=== PATIENT | male | born 1945 | race Caucasian/White ===

== ENCOUNTER 2018-06-12 16:35 | Observation (INO) | payer MEDICARE ==
[~2018-06-12] VITALS: Ht 177.8 cm; Wt 92.5 kg
[2018-06-12 16:56] LABS: EOSINOPHILS % (AUTO) 3.5 % (0.0-8.0); HEMATOCRIT 40.6 % (42-54); LYMPHOCYTES % (AUTO) 25.5 % (21.0-51.0); MEAN CORPUSCULAR HEMOGLOBIN 32.9 pg (27.0-33.0); MEAN CORPUSCULAR HGB CONC 34.3 g/dL (32.0-36.0); PLATELET COUNT (AUTO) 239 K/uL (130-400); RED BLOOD CELL COUNT(AUTO) 4.23 MIL/uL (4.50-6.20); RED CELL DISTRIBUTION WIDTH 13.3 % (11.0-15.5); WHITE BLOOD COUNT (AUTO) 7.3 K/uL (4.8-10.8)
[2018-06-12 17:15] LABS: INR 1.17 (0.85-1.15); PARTIAL THROMBOPLASTIN TIME 31.3 SEC (26.3-35.5); PROTHROMBIN TIME 12.2 SEC (9.6-11.6)
[2018-06-12 17:35] LABS: CREATININE 1.4 mg/dL (0.5-1.5); POTASSIUM 3.7 mmol/L (3.5-5.1)
[2018-06-12 17:55] LABS: ALBUMIN 3.9 g/dL (3.5-5.0); BILIRUBIN,TOTAL 0.3 mg/dL (0.2-1.0); TOTAL PROTEIN, SERUM 7.6 g/dL (6.0-8.3)
[2018-06-12] MEDS ORDERED: ACETAMINOPHEN 325 MG TAB PO PRN ×2 (19:45)
[2018-06-12] MEDS: NITROGLYCERIN 1GM/1 INCH PACKET TD SCH (19:45)
[2018-06-12] MEDS ORDERED: ONDANSETRON HCL 4 MG/2 ML VIAL IV PRN (19:45)
[2018-06-12] MEDS ORDERED: MORPHINE SULFATE 4 MG/1ML SYG IV PRN (19:45)
[2018-06-12] MEDS ORDERED: HYDRALAZINE HCL 20 MG/ML VIAL IV PRN (19:45)
[2018-06-12] MEDS: ENOXAPARIN SODIUM 30 MG/0.3 ML SQ SCH (21:00)
[2018-06-12] MEDS: METOPROLOL TARTRATE 25 MG TAB PO SCH (21:00)
[2018-06-12] MEDS: FAMOTIDINE/PF 20 MG/2 ML VIAL IV SCH (21:00)
[2018-06-12] MEDS ORDERED: ENOXAPARIN SODIUM 30 MG/0.3 ML SQ ONE (21:26)
[2018-06-12] MEDS ORDERED: NITROGLYCERIN 1GM/1 INCH PACKET TD ONE (21:26)
[2018-06-12] MEDS ORDERED: FAMOTIDINE 20MG TAB 20 MG TAB ONE (21:26)
[2018-06-12] MEDS ORDERED: METOPROLOL TARTRATE 25 MG TAB ONE (21:27)
--- NOTE | 2018-06-13 00:45 | NUR ---
ASSESSMENT PATIENT TRANSFERRED FROM [place] [id number]. DX: UNSTABLE ANGINA - HX A-FIB W/ DEFIBRILLATOR. PATIENT DENIES CHEST PAIN AND SHORTNESS OF BREATH AT THIS TIME. O2 @ 2L - NASAL CANNULA. RESPIRATIONS UNLABORED. V-PACED HR 80'S TO 90'S. SEE DOCUMENTATION FOR FULL ASSESSMENT. CALL LIGHT WITHIN REACH. INSTRUCTED PATIENT TO CALL IF ASSISTANCE IS NEEDED.
[2018-06-13 01:53] VITALS: BP 139/76
[2018-06-13] MEDS ORDERED: OMEG-148 PO (03:51)
[2018-06-13] MEDS ORDERED: ACET-2900 PO (03:51)
[2018-06-13] MEDS ORDERED: ALBU2.5V2 IH (03:51)
[2018-06-13] MEDS ORDERED: SIMV10TA2 PO (03:51)
[2018-06-13] MEDS ORDERED: MULT-264 PO (03:51)
[2018-06-13] MEDS ORDERED: METF-444 PO (03:51)
[2018-06-13] MEDS ORDERED: HYDR25TA PO (03:51)
[2018-06-13] MEDS ORDERED: METO100T14 PO (03:51)
[2018-06-13] MEDS ORDERED: LOSA50TA64 PO (03:51)
[2018-06-13] MEDS ORDERED: BUDE10.2 IH (03:51)
[2018-06-13] MEDS ORDERED: ASPI-1012 PO (03:51)
[2018-06-13] MEDS ORDERED: GLUC1TAB21 PO (03:51)
[2018-06-13] MEDS ORDERED: NITR0.4T50 SL (03:51)
[2018-06-13] MEDS ORDERED: ALBU8.5H8 IH (03:51)
[2018-06-13 03:57] VITALS: BP 133/82
[2018-06-13] MEDS: NITROGLYCERIN 1GM/1 INCH PACKET TD SCH (04:02)
[2018-06-13] MEDS: INSULIN HUMULIN R 100 UNIT/ML 3ML SQ SCH ×2 (06:18→11:30)
[2018-06-13 07:35] VITALS: BP 130/55
[2018-06-13] MEDS: FAMOTIDINE/PF 20 MG/2 ML VIAL IV SCH (07:36)
[2018-06-13] MEDS: METOPROLOL TARTRATE 25 MG TAB PO SCH (07:36)
[2018-06-13] MEDS: ENOXAPARIN SODIUM 30 MG/0.3 ML SQ SCH (07:36)
--- NOTE | 2018-06-13 08:00 | NUR ---
ASSESSMENT PT IS AAOX4 DENIES CP DENIES SOB DENIES NV NO COMPLAINTS AT THIS TIME. TOLERATED AM MEDS. SITTING UPRIGHT IN BED. CALL LIGHT WITHIN REACH.
[2018-06-13] MEDS ORDERED: ASPIRIN 325 MG TABLET PO SCH (09:00)
[2018-06-13] MEDS ORDERED: RANO500T2 PO (10:54)
[2018-06-13] MEDS ORDERED: ALBUTEROL SULFATE 0.083% 2.5 MG/3 ML INH IH PRN (11:15)
[2018-06-13 11:31] VITALS: BP 111/80
--- NOTE | 2018-06-13 14:00 | NUR ---
DC HOME PT AND FAMILY VERBALIZE DC INSTRUCTIONS UNDERSTANDING, AGREE TO FOLLOW UP WITH MD ORDERED AND TAKE MEDS ORDERED. PIV REMOVED CATH TIP INTACT TELE PACK REMOVED ALL QUESTIONS ANSWERED. DOWN VIA WC TO VEHICLE WITH FAMILY.
[2018-06-13] MEDS ORDERED: METFORMIN HCL 500 MG TABLET PO SCH (17:00)
[2018-06-13] MEDS ORDERED: RANOLAZINE 500 MG TAB.SR.12H PO SCH (21:00)
[2018-06-13] MEDS ORDERED: SIMVASTATIN 10 MG TABLET PO SCH (21:00)
[2018-06-13] MEDS ORDERED: METOPROLOL TARTRATE 50 MG TAB PO SCH (21:00)
[2018-06-14] MEDS ORDERED: HYDROCHLOROTHIAZIDE 25 MG TABLET PO SCH (09:00)
[2018-06-14] MEDS ORDERED: GLUCOSAMINE-CHONDROITIN PO SCH (09:00)
[2018-06-14] MEDS ORDERED: MULTIVITAMIN TABLET PO SCH (09:00)
[2018-06-14] MEDS ORDERED: LOSARTAN 50 MG TABLET PO SCH (09:00)
[2018-06-14] MEDS ORDERED: FISH OIL 1000 MG/CAP PO SCH (09:00)
== END 2018-06-13 13:44 | disposition home or self-care (01) ==
LOC: EDH 16:35 → INTOOBSV 18:35 → EDHIP 18:35 → 2DH 06-13 01:52
PROVIDERS: ADMIT Internal Medicine; ATTEND Internal Medicine
DX: I25.110 Atherosclerotic heart disease of native coronary artery with unstable angina pectoris (principal); E11.9 Type 2 diabetes mellitus without complications; K21.9 Gastro-esophageal reflux disease without esophagitis; I10 Essential (primary) hypertension; E78.5 Hyperlipidemia, unspecified; I25.5 Ischemic cardiomyopathy; I48.0 Paroxysmal atrial fibrillation; Z79.01 Long term (current) use of anticoagulants; Z95.5 Presence of coronary angioplasty implant and graft; Z95.810 Presence of automatic (implantable) cardiac defibrillator
CPT/HCPCS: 36415; 71045; 80053; 82550; 82948 ×2; 83874; 84484 ×2; 85025; 85610; 85730; 93005; 94664; 96372; 96374; 99284; G0378 ×19; J1650 ×2; J3490

== ENCOUNTER 2019-07-05 20:05 | Inpatient (IN) | payer MEDICARE ==
[~2019-07-05] VITALS: Ht 175.3 cm; Wt 79.1 kg
[~2019-07-05 20:05] MED LIST: ACET-3194 PO; ALBU8.5H8 IH; ASPI-1012 PO; BUDE10.2 IH; GLUC1TAB21 PO; HYDR25TA PO; LOSA50TA64 PO; METF-444 PO; METO100T14 PO; MULT-264 PO; NIFE-40 PO; NITR0.4T50 SL; OMEG-148 PO; RANO500T2 PO; SIMV10TA2 PO; [UNRECOGNIZED DRUG - CODE] PO
[2019-07-05] MEDS ORDERED: IPRATROPIUM/ALBUTEROL SULFATE 3 ML SOLUTION IH ONE (22:25)
[2019-07-05 22:40] LABS: BASOPHILS % (AUTO) 0.1 % (0.0-5.0); EOSINOPHILS % (AUTO) 0.3 % (0.0-8.0); HEMATOCRIT 31.7 % (42-54); LYMPHOCYTES % (AUTO) 3.6 % (21.0-51.0); MEAN CORPUSCULAR HEMOGLOBIN 31.6 pg (27.0-33.0); MEAN CORPUSCULAR HGB CONC 33.1 g/dL (32.0-36.0); MEAN CORPUSCULAR VOLUME 95.5 fL (79-99); MONOCYTES % (AUTO) 6.3 % (3.0-13.0); NEUTROPHILS % (AUTO) 87.5 % (40.0-77.0); PLATELET COUNT (AUTO) 235 K/uL (130-400); RED BLOOD CELL COUNT(AUTO) 3.32 MIL/uL (4.50-6.20); WHITE BLOOD COUNT (AUTO) 26.6 K/uL (4.8-10.8)
[2019-07-05 22:44] LABS: APPEARANCE,URINE Turbid (CLEAR); BILIRUBIN,URINE Small (NEGATIVE); COLOR,URINE Dark Yellow (YELLOW); GLUCOSE, URINE (UA) Negative (NEGATIVE); KETONES,URINE 40 mg/dL (NEGATIVE); LEUKOCYTE ESTERASE ,URINE Large (NEGATIVE); NITRATE,URINE Positive (NEGATIVE); OCCULT BLOOD,URINE Large (NEGATIVE); PROTEIN,URINE POS 2+ mg/dL (NEGATIVE)
[2019-07-05 22:55] LABS: RAPID GROUP A STREP NEGATIVE (NEGATIVE)
[2019-07-05 22:57] LABS: INR 1.39 (0.85-1.15); PARTIAL THROMBOPLASTIN TIME 48.3 SEC (26.3-35.5); PROTHROMBIN TIME 14.8 SEC (9.6-11.6)
[2019-07-05 22:58] LABS: CARBON DIOXIDE 25 mmol/L (21-32); CHLORIDE 97 mmol/L (101-111); CREATININE 1.9 mg/dL (0.5-1.5); GLOMERULAR FILTR. RATE CALC 37 mL/min (>60); GLUCOSE,RANDOM 157 mg/dL (70-105); POTASSIUM 4.2 mmol/L (3.5-5.1); SODIUM SERUM 132 mmol/L (136-145); UREA NITROGEN, BLOOD 32 mg/dL (7-18)
[2019-07-05 23:09] LABS: ALANINE AMINOTRANSFERASE 11 U/L (12-78); ASPARTATE AMINOTRANSFERASE 13 U/L (10-37); BILIRUBIN,TOTAL 0.7 mg/dL (0.2-1.0); CREATINE KINASE, TOTAL 41 U/L (21-232); MYOGLOBIN 104 ng/mL (10-92); TROPONIN I < 0.04 ng/mL (0.00-0.06)
[2019-07-05 23:19] LABS: BACTERIA,URINE Many /HPF (None Seen); MUCUS,URINE Moderate LPF (None Seen); SQUAMOUS EPITHELIAL CELL,UR Rare /HPF (0-2); WBC,URINE TNTC /HPF (0-1)
[2019-07-05] MEDS ORDERED: MEROPENEM 1 GM VIAL ONE (23:56)
[2019-07-06] VITALS (12 sets, daily range): BP systolic 114–153; BP diastolic 60–78
[2019-07-06] MEDS ORDERED: ONDANSETRON HCL 4 MG/2 ML VIAL IV PRN (01:00)
[2019-07-06] MEDS: MEROPENEM 1 GM VIAL IVP SCH ×3 (01:00→17:23)
[2019-07-06] MEDS ORDERED: IPRATROPIUM/ALBUTEROL SULFATE 3 ML SOLUTION IH PRN (01:00)
[2019-07-06] MEDS ORDERED: HYDRALAZINE HCL 20 MG/ML VIAL IV PRN (01:15)
[2019-07-06] MEDS ORDERED: MORPHINE SULFATE 2 MG/ML 1ML SYG IVP PRN (01:30)
[2019-07-06 02:48] LABS: BASOPHILS % (AUTO) 0.1 % (0.0-5.0); EOSINOPHILS % (AUTO) 0.1 % (0.0-8.0); HEMATOCRIT 30.4 % (42-54); LYMPHOCYTES % (AUTO) 2.5 % (21.0-51.0); MEAN CORPUSCULAR HEMOGLOBIN 32.5 pg (27.0-33.0); MEAN CORPUSCULAR HGB CONC 34.2 g/dL (32.0-36.0); MONOCYTES % (AUTO) 5.9 % (3.0-13.0); NEUTROPHILS % (AUTO) 90.7 % (40.0-77.0); PLATELET COUNT (AUTO) 236 K/uL (130-400); RED CELL DISTRIBUTION WIDTH 14.1 % (11.0-15.5); WHITE BLOOD COUNT (AUTO) 24.5 K/uL (4.8-10.8)
[2019-07-06 03:15] LABS: CREATININE 1.8 mg/dL (0.5-1.5); POTASSIUM 4.1 mmol/L (3.5-5.1)
[2019-07-06] MEDS: ACETAMINOPHEN 325 MG TAB PO PRN (04:44)
[2019-07-06] MEDS ORDERED: FERR325T22 PO (05:40)
[2019-07-06] MEDS ORDERED: PANT40TA25 PO (05:40)
[2019-07-06] MEDS ORDERED: LEVO750T46 PO (05:40)
[2019-07-06] MEDS ORDERED: ASPI-555 PO (05:40)
[2019-07-06] MEDS ORDERED: RIVA20TA PO (05:40)
[2019-07-06] MEDS: INSULIN HUMULIN R 100 UNIT/ML 3ML SQ SCH ×4 (06:10→22:01)
--- NOTE | 2019-07-06 10:00 | NUR ---
Patient transferred from [facility]. Assumed care at this time. Patient in no apparent distress with no complaints of pain, SOB. Will continue to monitor.
[2019-07-06] MEDS: FAMOTIDINE 20MG TAB 20 MG TAB PO SCH (10:11)
[2019-07-06] MEDS: ENOXAPARIN SODIUM 30 MG/0.3 ML SQ SCH (10:12)
--- NOTE | 2019-07-06 16:38 | NUR ---
INITIAL: Call placed to pt and spouse this afternoon to discuss dcp. Per pt and spouse, prior to admission pt was at [facility] for short term therapy following a hip fracture. Pt states that prior to this he was living at home w his spouse. He is a [place] from [place] and was previously independent w ambulation and ADLs. Per spouse, she has borrowed a BSC and rolling walker. Pt has at home a cpap and nebulizer as well. Per pt and spouse, dcp is for pt to return to [facility] to complete rehabilitation process. Informed them that new referral would have to be completed pending Md order. Both verbalize understanding. Telephone consent obtained for DANE/PC for [facility] once medically cleared. Addendum: 07/06/19 at 1646 by LANDY ALCOCER Amended: Links added.
[2019-07-07] VITALS (14 sets, daily range): BP systolic 105–148; BP diastolic 49–83
[2019-07-07] MEDS: ACETAMINOPHEN 325 MG TAB PO PRN ×3 (00:09→20:42)
[2019-07-07] MEDS: MEROPENEM 1 GM VIAL IVP SCH ×3 (01:40→16:37)
[2019-07-07 05:05] LABS: MEAN CORPUSCULAR HEMOGLOBIN 31.5 pg (27.0-33.0); MEAN CORPUSCULAR HGB CONC 33.3 g/dL (32.0-36.0); MEAN CORPUSCULAR VOLUME 94.6 fL (79-99); PLATELET COUNT (AUTO) 222 K/uL (130-400); RED BLOOD CELL COUNT(AUTO) 3.17 MIL/uL (4.50-6.20); WHITE BLOOD COUNT (AUTO) 20.3 K/uL (4.8-10.8)
[2019-07-07 05:22] LABS: ALBUMIN 2.6 g/dL (3.5-5.0); BILIRUBIN,TOTAL 0.5 mg/dL (0.2-1.0); CREATININE 1.6 mg/dL (0.5-1.5); MAGNESIUM 1.9 mg/dL (1.80-2.40); PHOSPHORUS 2.7 mg/dL (2.5-4.9); POTASSIUM 3.6 mmol/L (3.5-5.1); TOTAL PROTEIN, SERUM 6.7 g/dL (6.0-8.3)
[2019-07-07 05:24] LABS: BAND NEUTROPHILS % (MANUAL) 5 % (0-2); LYMPHOCYTES % (MANUAL) 4 % (22-44); MONOCYTES % (MANUAL) 6 % (2-9); SEGMENTED NEUTROPHILS % 85 % (40-70)
[2019-07-07 05:25] LABS: MAN.DIFF COMMENT-IMPRESSION MANUAL DIFFERENTIAL; PLATELET MORPHOLOGY COMMENT ADEQUATE
[2019-07-07] MEDS: INSULIN HUMULIN R 100 UNIT/ML 3ML SQ SCH ×4 (06:48→20:31)
[2019-07-07] MEDS: FAMOTIDINE 20MG TAB 20 MG TAB PO SCH (08:34)
[2019-07-07] MEDS: THIAMINE HCL 100 MG/ML 2ML VIAL IVP SCH (08:34)
[2019-07-07] MEDS: ENOXAPARIN SODIUM 30 MG/0.3 ML SQ SCH (08:35)
[2019-07-08] VITALS: BP 139/78
[2019-07-08] MEDS: MEROPENEM 1 GM VIAL IVP SCH ×4 (01:29→23:51)
[2019-07-08 04:00] VITALS: BP 147/59
[2019-07-08] MEDS: ACETAMINOPHEN 325 MG TAB PO PRN (04:32)
[2019-07-08 04:52] LABS: BASOPHILS % (AUTO) 0.2 % (0.0-5.0); EOSINOPHILS % (AUTO) 0.2 % (0.0-8.0); HEMATOCRIT 28.1 % (42-54); LYMPHOCYTES % (AUTO) 5.6 % (21.0-51.0); MEAN CORPUSCULAR HGB CONC 33.1 g/dL (32.0-36.0); MEAN CORPUSCULAR VOLUME 93.7 fL (79-99); MONOCYTES % (AUTO) 6.6 % (3.0-13.0); NEUTROPHILS % (AUTO) 86.8 % (40.0-77.0); PLATELET COUNT (AUTO) 234 K/uL (130-400); RED CELL DISTRIBUTION WIDTH 13.7 % (11.0-15.5); WHITE BLOOD COUNT (AUTO) 12.5 K/uL (4.8-10.8)
[2019-07-08 05:27] LABS: CREATININE 1.3 mg/dL (0.5-1.5); MAGNESIUM 1.8 mg/dL (1.80-2.40); POTASSIUM 3.5 mmol/L (3.5-5.1)
[2019-07-08] MEDS: INSULIN HUMULIN R 100 UNIT/ML 3ML SQ SCH ×4 (05:53→21:00)
[2019-07-08 07:46] VITALS: BP 143/72
[2019-07-08] MEDS: FAMOTIDINE 20MG TAB 20 MG TAB PO SCH (07:57)
[2019-07-08] MEDS: THIAMINE HCL 100 MG/ML 2ML VIAL IVP SCH (07:57)
[2019-07-08] MEDS: ENOXAPARIN SODIUM 30 MG/0.3 ML SQ SCH (07:58)
--- NOTE | 2019-07-08 08:45 | NUR ---
ASSESSMENT COMPLETED AND DOCUMENTED. GIVEN SCHEDULED MEDICATIONS. DR. ELIZONDO IN TO SEE PATIENT, UPDATE GIVEN.
[2019-07-08] MEDS ORDERED: AZITHROMYCIN 250 MG TABLET PO SCH (11:45)
[2019-07-08 12:08] VITALS: BP 171/77
--- NOTE | 2019-07-08 15:40 | NUR ---
C/O CHEST PAIN, 6 ON CEE SCALE. TELE READING SR HR 61. STATES PAIN IS AT MID CHEST, NON RADIATING. VS: 61, 15, 96% ON ROOM AIR, 176/81 (127). HE STATES HIS AICD WAS CHECKED LAST MONTH. PAGED DR. ELIZONDO.
[2019-07-08 16:39] VITALS: BP 176/81
--- NOTE | 2019-07-08 16:45 | NUR ---
DR. ELIZONDO RETURNED CALL---ORDERED CARDIAC PANEL Q 6 HRS X 3 SETS. INFORMED PATIENT. NO FURTHER C/O CHEST PAIN.
[2019-07-08 18:04] LABS: CREATINE KINASE, TOTAL 15 U/L (21-232); MYOGLOBIN 48 ng/mL (10-92); TROPONIN I < 0.04 ng/mL (0.00-0.06)
--- NOTE | 2019-07-08 18:10 | NUR ---
MEDICATED WITH HYDRALAZINE 10 MG IV FOR BP 176/81.
[2019-07-08 19:30] VITALS: BP 169/72
[2019-07-08] MEDS ORDERED: NITROGLYCERIN 0.4 MG SL TAB SL PRN (21:30)
[2019-07-08] MEDS ORDERED: NIFEDIPINE ER 30 MG TAB PO SCH (22:30)
[2019-07-08] MEDS ORDERED: HYDROCHLOROTHIAZIDE 25 MG TABLET PO SCH (22:30)
[2019-07-08] MEDS ORDERED: HYDROCHLOROTHIAZIDE 25 MG TABLET ONE (23:45)
[2019-07-08] MEDS: DOCUSATE SODIUM 100 MG CAP PO SCH (23:51)
[2019-07-08] MEDS: METOPROLOL TARTRATE 25 MG TAB PO SCH (23:51)
[2019-07-08] MEDS: LOSARTAN 50 MG TABLET PO SCH (23:51)
[2019-07-09] VITALS (8 sets, daily range): BP systolic 120–169; BP diastolic 54–84
[2019-07-09] LABS: CREATINE KINASE, TOTAL 16 U/L (21-232); MYOGLOBIN 52 ng/mL (10-92); TROPONIN I < 0.04 ng/mL (0.00-0.06)
[2019-07-09] MEDS ORDERED: LORAZEPAM 2 MG/ML 1 ML VIAL IVP ONE (03:30)
--- NOTE | 2019-07-09 03:30 | NUR ---
SPOKE TO YUVAL THOMSON, PT HAS BEEN CONFUSED WITH CONFUSED STATEMENTS. UNAWARE OF HIS SURROUNDINGS. RECEIVED NEW ORDER FOR LORAZEPAM 0.5 IVP x1. STAT ORDER TO CHECK AMMONIA LEVELS.
[2019-07-09] MEDS ORDERED: LORAZEPAM 2 MG/ML 1 ML VIAL ONE (03:38)
--- NOTE | 2019-07-09 03:48 | NUR ---
AMMONIA LEVEL WNL AT 12. PT IS LAYING WITH EYES CLOSED BUT MUMBLES CONVERSATIONS WITH HIMSELF.
[2019-07-09 04:01] LABS: BASOPHILS % (AUTO) 0.3 % (0.0-5.0); EOSINOPHILS % (AUTO) 0.4 % (0.0-8.0); HEMATOCRIT 30.9 % (42-54); LYMPHOCYTES % (AUTO) 8.5 % (21.0-51.0); MEAN CORPUSCULAR HEMOGLOBIN 30.8 pg (27.0-33.0); MEAN CORPUSCULAR HGB CONC 33.3 g/dL (32.0-36.0); MEAN CORPUSCULAR VOLUME 92.5 fL (79-99); MONOCYTES % (AUTO) 11.8 % (3.0-13.0); NEUTROPHILS % (AUTO) 77.2 % (40.0-77.0); PLATELET COUNT (AUTO) 259 K/uL (130-400); RED BLOOD CELL COUNT(AUTO) 3.34 MIL/uL (4.50-6.20); RED CELL DISTRIBUTION WIDTH 13.2 % (11.0-15.5); WHITE BLOOD COUNT (AUTO) 9.5 K/uL (4.8-10.8)
[2019-07-09 04:19] LABS: CARBON DIOXIDE 27 mmol/L (21-32); CHLORIDE 98 mmol/L (101-111); CREATINE KINASE, TOTAL 19 U/L (21-232); CREATININE 1.2 mg/dL (0.5-1.5); GLOMERULAR FILTR. RATE CALC 63 mL/min (>60); GLUCOSE,RANDOM 394 mg/dL (70-105); MYOGLOBIN 52 ng/mL (10-92); POTASSIUM 3.7 mmol/L (3.5-5.1); SODIUM SERUM 135 mmol/L (136-145); TROPONIN I < 0.04 ng/mL (0.00-0.06); UREA NITROGEN, BLOOD 22 mg/dL (7-18)
[2019-07-09 04:26] LABS: AMMONIA 12 umol/L (11-32)
--- NOTE | 2019-07-09 05:15 | NUR ---
PT WAS FOUND STANDING AT BEDSIDE BY JM PCP. PT WAS POSITIONED BACK INTO BED AND REDIRECTED TO HIS SURROUNDINGS, REMINDED PT HE IS AT [facility]. NO INJURY WAS NOTED. PT IS CALM AND LAYING DOWN.
--- NOTE | 2019-07-09 06:00 | NUR ---
BED ALARM SET OFF AND PT WAS ATTEMPTING TO GET OUT OF BED. I STAYED WITH PT WHILE HE SAT AT EDGE OF BED FOR A FEW MINUTES. PT UNDERSTANDS HE HAS A HIP AND LEG INJURY AND STATES HE NEEDS TO GET BETTER. REORIENTED PT TO HIS SURROUNDINGS AND HE COULD NOT GET UP. HE DOES NOT HAVE STRENGTH FOR FULL WEIGHT BEARING. PT VERBALIZES UNDERSTANDING BUT IS UPSET HE NEEDS TO STAY IN BED AND IS IN HOSPITAL. NO INJURY NOTED. PT AGREED TO LAY BACK DOWN IN BED. NIETO STILL SECURED TO LEG AND IN PLACE. BED TO LOWEST LEVEL. CALL LIGHT WITHIN REACH. BED ALARM IS ON. JM PCP WILL CONTINUE TO BE AT PTS DOOR TO MONITOR HIM.
[2019-07-09] MEDS: INSULIN HUMULIN R 100 UNIT/ML 3ML SQ SCH ×4 (06:04→20:58)
--- NOTE | 2019-07-09 06:30 | NUR ---
NOTIFIED DJ SOFA BACK UPHOLSTERER, 1:1 SITTER IS NEEDED FOR PATIENT D/T HE CONTINUES TO ATTEMPT TO GET OUT OF BED.
[2019-07-09] MEDS: ENOXAPARIN SODIUM 30 MG/0.3 ML SQ SCH (08:15)
[2019-07-09] MEDS: DOCUSATE SODIUM 100 MG CAP PO SCH ×2 (08:15→20:58)
[2019-07-09] MEDS: HYDROCHLOROTHIAZIDE 25 MG TABLET PO SCH (08:16)
[2019-07-09] MEDS: AZITHROMYCIN 250 MG TABLET PO SCH (08:16)
[2019-07-09] MEDS: METOPROLOL TARTRATE 25 MG TAB PO SCH ×2 (08:16→20:57)
[2019-07-09] MEDS: NIFEDIPINE ER 30 MG TAB PO SCH (08:16)
[2019-07-09] MEDS: LINAGLIPTIN 5 MG TABLET PO SCH (08:16)
[2019-07-09] MEDS: RIVAROXABAN 20 MG TABLET PO SCH (08:16)
[2019-07-09] MEDS: FAMOTIDINE 20MG TAB 20 MG TAB PO SCH (08:16)
[2019-07-09] MEDS: THIAMINE HCL 100 MG/ML 2ML VIAL IVP SCH (08:20)
[2019-07-09] MEDS ORDERED: CLONAZEPAM 1 MG TABLET PO ONE (11:30)
[2019-07-09] MEDS ORDERED: CLONAZEPAM 0.5 MG TABLET ONE (11:45)
[2019-07-09] MEDS ORDERED: CLONAZEPAM 0.5 MG TABLET PO SCH ×2 (12:00→21:00)
[2019-07-09] MEDS ORDERED: MAGNESIUM 2GM PREMIX 50ML 50 ML IV PRN (13:15)
[2019-07-09] MEDS: MEROPENEM 1 GM VIAL IVP SCH ×2 (13:23→20:57)
[2019-07-09] MEDS: LOSARTAN 50 MG TABLET PO SCH (20:58)
[2019-07-09] MEDS ORDERED: CLONAZEPAM 1 MG TABLET PO SCH (21:00)
[2019-07-09] MEDS ORDERED: DOCUSATE SODIUM 100 MG CAP PO PRN (21:00)
[2019-07-10 04:00] VITALS: BP 133/66
[2019-07-10 05:32] LABS: HEMATOCRIT 31.3 % (42-54); MEAN CORPUSCULAR HEMOGLOBIN 30.6 pg (27.0-33.0); MEAN CORPUSCULAR HGB CONC 32.9 g/dL (32.0-36.0); MEAN CORPUSCULAR VOLUME 92.9 fL (79-99); PLATELET COUNT (AUTO) 316 K/uL (130-400); RED BLOOD CELL COUNT(AUTO) 3.37 MIL/uL (4.50-6.20); RED CELL DISTRIBUTION WIDTH 13.6 % (11.0-15.5); WHITE BLOOD COUNT (AUTO) 11.1 K/uL (4.8-10.8)
[2019-07-10 05:48] LABS: CREATININE 1.1 mg/dL (0.5-1.5); MAGNESIUM 1.9 mg/dL (1.80-2.40); POTASSIUM 3.6 mmol/L (3.5-5.1)
[2019-07-10] MEDS: INSULIN HUMULIN R 100 UNIT/ML 3ML SQ SCH ×4 (05:54→20:25)
[2019-07-10] MEDS: MEROPENEM 1 GM VIAL IVP SCH (06:01)
--- NOTE | 2019-07-10 06:48 | NUR ---
Patient attempted to get out of bed several times throughout the night. Has intermittent confusion and is impulsive. Patient needs to be reoriented. Able to state name and . Does not know year or location. Crackles heard when auscultated. Denies pain or sob. No signs of distress.
[2019-07-10 06:50] LABS: APPEARANCE,URINE Clear (CLEAR); BILIRUBIN,URINE Negative (NEGATIVE); COLOR,URINE Yellow (YELLOW); GLUCOSE, URINE (UA) Negative (NEGATIVE); KETONES,URINE 40 mg/dL (NEGATIVE); LEUKOCYTE ESTERASE ,URINE Negative (NEGATIVE); NITRATE,URINE Negative (NEGATIVE); OCCULT BLOOD,URINE Negative (NEGATIVE); PH,URINE 5.5 (5.0-8.0); PROTEIN,URINE Trace mg/dL (NEGATIVE)
[2019-07-10 07:49] LABS: BACTERIA,URINE Rare /HPF (None Seen); RBC,URINE 0-1 /HPF (0-1); SQUAMOUS EPITHELIAL CELL,UR Rare /HPF (0-2); WBC,URINE 0-1 /HPF (0-1)
[2019-07-10 08:00] VITALS: BP 121/56
[2019-07-10] MEDS: THIAMINE HCL 100 MG/ML 2ML VIAL IVP SCH (09:07)
[2019-07-10] MEDS: METOPROLOL TARTRATE 25 MG TAB PO SCH ×2 (09:08→20:24)
[2019-07-10] MEDS: FAMOTIDINE 20MG TAB 20 MG TAB PO SCH (09:08)
[2019-07-10] MEDS: HYDROCHLOROTHIAZIDE 25 MG TABLET PO SCH (09:08)
[2019-07-10] MEDS: NIFEDIPINE ER 30 MG TAB PO SCH (09:08)
[2019-07-10] MEDS: LINAGLIPTIN 5 MG TABLET PO SCH (09:08)
[2019-07-10] MEDS: DOCUSATE SODIUM 100 MG CAP PO SCH ×2 (09:08→20:24)
[2019-07-10] MEDS: RIVAROXABAN 20 MG TABLET PO SCH (09:08)
[2019-07-10] MEDS: AZITHROMYCIN 250 MG TABLET PO SCH (09:08)
[2019-07-10 10:55] VITALS: BP 114/61
[2019-07-10] MEDS ORDERED: LEVOFLOXACIN 750 MG/D5W 150 ML 150 ML IV SCH (12:45)
--- NOTE | 2019-07-10 13:37 | NUR ---
DC PLAN SENT U[facility]. STILL PENDING COVID FORM AND MED REC. PATIENT MIGHT NEED SOCIAL WORK ADMINISTRATOR ABX LET NURSE KNOW IF PLAN IS FOR IT THEN WILL NEED PICC LINE. VERBALIZED UNDERSTANDING. CURRENTLY ON A ONE TO ONE AND PENDING COVID 19 RESULTS. Addendum: 07/10/19 at 1340 by TIM CASTRO RN CM Amended: Links added.
[2019-07-10 16:00] VITALS: BP 109/63
[2019-07-10] MEDS: LOSARTAN 50 MG TABLET PO SCH (19:29)
[2019-07-10] MEDS ORDERED: LACTULOSE 20 GM/30 ML UDCUP PO PRN (20:00)
[2019-07-10 20:19] VITALS: BP 100/66
[2019-07-10] MEDS: CLONAZEPAM 0.5 MG TABLET PO PRN (20:24)
[2019-07-10] MEDS: LACTULOSE 20 GM/30 ML UDCUP PO PRN (20:24)
[2019-07-10] MEDS: ACETAMINOPHEN 325 MG TAB PO PRN (20:25)
[2019-07-10 23:28] VITALS: BP 146/67
[2019-07-11 04:11] VITALS: BP 130/69
[2019-07-11 05:29] LABS: HEMATOCRIT 32.5 % (42-54); MEAN CORPUSCULAR HEMOGLOBIN 31.4 pg (27.0-33.0); MEAN CORPUSCULAR HGB CONC 33.2 g/dL (32.0-36.0); MEAN CORPUSCULAR VOLUME 94.5 fL (79-99); PLATELET COUNT (AUTO) 381 K/uL (130-400); RED BLOOD CELL COUNT(AUTO) 3.44 MIL/uL (4.50-6.20); RED CELL DISTRIBUTION WIDTH 13.8 % (11.0-15.5); WHITE BLOOD COUNT (AUTO) 10.3 K/uL (4.8-10.8)
[2019-07-11 06:01] LABS: ALBUMIN 2.7 g/dL (3.5-5.0); BILIRUBIN,TOTAL 0.3 mg/dL (0.2-1.0); CREATININE 1.4 mg/dL (0.5-1.5); POTASSIUM 3.5 mmol/L (3.5-5.1); TOTAL PROTEIN, SERUM 7.1 g/dL (6.0-8.3)
[2019-07-11] MEDS: INSULIN HUMULIN R 100 UNIT/ML 3ML SQ SCH ×4 (06:33→21:00)
--- NOTE | 2019-07-11 08:00 | NUR ---
ASSESSMENT PT IS AAOX3 DENIES CP DENIES SOB DENIES NV NO COMPLAINTS RESTING IN BED. BREATHING PATTERN IS EVEN AND UNLABORED. ON ROOM AIR. CALL LIGHT WITHIN REACH, ISOLATION MAINTAINED. TOLERATED MEAL AND MEDS NO COMPLAINTS.
[2019-07-11 08:08] VITALS: BP 128/67
[2019-07-11] MEDS: NIFEDIPINE ER 30 MG TAB PO SCH (08:47)
[2019-07-11] MEDS: FAMOTIDINE 20MG TAB 20 MG TAB PO SCH (08:47)
[2019-07-11] MEDS: LINAGLIPTIN 5 MG TABLET PO SCH (08:48)
[2019-07-11] MEDS: DOCUSATE SODIUM 100 MG CAP PO SCH ×2 (08:48→19:51)
[2019-07-11] MEDS: THIAMINE HCL 100 MG/ML 2ML VIAL IVP SCH (08:48)
[2019-07-11] MEDS: METOPROLOL TARTRATE 25 MG TAB PO SCH ×2 (08:48→19:51)
[2019-07-11] MEDS: HYDROCHLOROTHIAZIDE 25 MG TABLET PO SCH (08:48)
[2019-07-11] MEDS: RIVAROXABAN 20 MG TABLET PO SCH (08:48)
[2019-07-11 12:08] VITALS: BP 143/77
--- NOTE | 2019-07-11 15:35 | NUR ---
JACK SCREEN - LOS X 5 Pt admitted for UTI, Sepsis. 75gm CC Diet order in place. No report of GI distress. Pt with decreased appetite, poor PO; Recommend Glucerna BID. JACK to continue to monitor. Addendum: 07/11/19 at [address] Amended: Links added.
[2019-07-11 16:26] VITALS: BP 116/63
[2019-07-11] MEDS: LOSARTAN 50 MG TABLET PO SCH (19:12)
[2019-07-11 19:38] VITALS: BP 120/71
[2019-07-11] MEDS: ACETAMINOPHEN 325 MG TAB PO PRN (19:52)
[2019-07-11 23:56] VITALS: BP 123/67
[2019-07-12] VITALS (7 sets, daily range): BP systolic 116–144; BP diastolic 57–77
[2019-07-12 06:09] LABS: BASOPHILS % (AUTO) 0.3 % (0.0-5.0); EOSINOPHILS % (AUTO) 1.3 % (0.0-8.0); HEMATOCRIT 33.1 % (42-54); LYMPHOCYTES % (AUTO) 16.4 % (21.0-51.0); MEAN CORPUSCULAR HEMOGLOBIN 31.5 pg (27.0-33.0); MEAN CORPUSCULAR HGB CONC 32.9 g/dL (32.0-36.0); MEAN CORPUSCULAR VOLUME 95.7 fL (79-99); NEUTROPHILS % (AUTO) 60.5 % (40.0-77.0); PLATELET COUNT (AUTO) 401 K/uL (130-400); RED BLOOD CELL COUNT(AUTO) 3.46 MIL/uL (4.50-6.20); RED CELL DISTRIBUTION WIDTH 13.9 % (11.0-15.5); WHITE BLOOD COUNT (AUTO) 11.5 K/uL (4.8-10.8)
[2019-07-12 06:29] LABS: CREATININE 1.3 mg/dL (0.5-1.5); POTASSIUM 3.2 mmol/L (3.5-5.1)
[2019-07-12] MEDS: INSULIN HUMULIN R 100 UNIT/ML 3ML SQ SCH ×4 (06:46→20:48)
[2019-07-12 07:08] LABS: BAND NEUTROPHILS % (MANUAL) 3 % (0-2); BASOPHILS % (MANUAL) 1 % (0-2); EOSINOPHILS % (MANUAL) 2 % (1-6); LYMPHOCYTES % (MANUAL) 17 % (22-44); MAN.DIFF COMMENT-IMPRESSION MANUAL DIFFERENTIAL; MONOCYTES % (MANUAL) 6 % (2-9); PLATELET MORPHOLOGY COMMENT ADEQUATE; REACTIVE LYMPHOCYTES 1 % (0-0); SEGMENTED NEUTROPHILS % 70 % (40-70)
[2019-07-12] MEDS: RIVAROXABAN 20 MG TABLET PO SCH (08:39)
[2019-07-12] MEDS: FAMOTIDINE 20MG TAB 20 MG TAB PO SCH (08:39)
[2019-07-12] MEDS: LEVOFLOXACIN 750 MG TABLET PO SCH (08:39)
[2019-07-12] MEDS: DOCUSATE SODIUM 100 MG CAP PO SCH ×2 (08:39→20:44)
[2019-07-12] MEDS: LINAGLIPTIN 5 MG TABLET PO SCH (08:39)
[2019-07-12] MEDS: HYDROCHLOROTHIAZIDE 25 MG TABLET PO SCH (08:39)
[2019-07-12] MEDS: THIAMINE HCL 100 MG/ML 2ML VIAL IVP SCH (08:39)
[2019-07-12] MEDS: METOPROLOL TARTRATE 25 MG TAB PO SCH ×2 (08:39→20:44)
[2019-07-12] MEDS: NIFEDIPINE ER 30 MG TAB PO SCH (08:39)
[2019-07-12] MEDS ORDERED: POTASSIUM CHLORIDE 20 MEQ ERTAB PO SCH (11:15)
[2019-07-12 11:35] LABS: CRP QUANTITATIVE 43.3 mg/L (0.00-9.0)
[2019-07-12] MEDS: ACETAMINOPHEN 325 MG TAB PO PRN ×2 (11:57→20:45)
[2019-07-12] MEDS: CEFTAZIDIME PENTAHYDRATE 2 GM/VIAL IVP SCH ×2 (12:03→20:46)
--- NOTE | 2019-07-12 13:00 | NUR ---
TSF PT CAME FROM [facility] BY BED WITH NURSE WARNER FRANKS, PT. V/S STABLE, NO PAIN, PATIENT HAS SMALL BLISTERS TO LOWER LIP AND SACRAL AREA IS RED,
--- NOTE | 2019-07-12 16:08 | NUR ---
DC PLAN SPOKE TO NURSE REGARDING PATIENT. PATIENT NOT READY FOR DC PER MD PATIENT WBC KEEP TRENDING UP AND DOWN. TRYING A NEW ANTIBIOTIC. UPDATES SENT TO [facility]. JUAN ALBERTO BOLIVAR. PACKET GIVEN TO MIKE. Addendum: 07/12/19 at 1615 by TIM CASTRO RN CM Amended: Links added.
[2019-07-12] MEDS ORDERED: SODIUM CHLORIDE 0.9% 250 ML IV ONE (20:51)
[2019-07-13 03:00] VITALS: BP 133/74
[2019-07-13] MEDS: CEFTAZIDIME PENTAHYDRATE 2 GM/VIAL IVP SCH ×3 (03:58→20:19)
[2019-07-13 04:53] LABS: BASOPHILS % (AUTO) 1.1 % (0.0-5.0); EOSINOPHILS % (AUTO) 0.7 % (0.0-8.0); HEMATOCRIT 32.1 % (42-54); LYMPHOCYTES % (AUTO) 17.9 % (21.0-51.0); MEAN CORPUSCULAR HEMOGLOBIN 30.5 pg (27.0-33.0); MEAN CORPUSCULAR VOLUME 92.2 fL (79-99); MONOCYTES % (AUTO) 7.4 % (3.0-13.0); PLATELET COUNT (AUTO) 444 K/uL (130-400); RED BLOOD CELL COUNT(AUTO) 3.48 MIL/uL (4.50-6.20); RED CELL DISTRIBUTION WIDTH 13.5 % (11.0-15.5); WHITE BLOOD COUNT (AUTO) 8.6 K/uL (4.8-10.8)
[2019-07-13 05:25] LABS: CREATININE 1.4 mg/dL (0.5-1.5); POTASSIUM 3.3 mmol/L (3.5-5.1)
[2019-07-13] MEDS: INSULIN HUMULIN R 100 UNIT/ML 3ML SQ SCH ×4 (05:30→20:19)
[2019-07-13 08:00] VITALS: BP 131/58
[2019-07-13] MEDS: HYDROCHLOROTHIAZIDE 25 MG TABLET PO SCH (08:41)
[2019-07-13] MEDS: LOSARTAN 50 MG TABLET PO SCH (08:41)
[2019-07-13] MEDS: DOCUSATE SODIUM 100 MG CAP PO SCH ×2 (08:41→20:19)
[2019-07-13] MEDS: FAMOTIDINE 20MG TAB 20 MG TAB PO SCH (08:41)
[2019-07-13] MEDS: LEVOFLOXACIN 750 MG TABLET PO SCH (08:41)
[2019-07-13] MEDS: METOPROLOL TARTRATE 25 MG TAB PO SCH ×2 (08:41→20:19)
[2019-07-13] MEDS: LINAGLIPTIN 5 MG TABLET PO SCH (08:41)
[2019-07-13] MEDS: RIVAROXABAN 20 MG TABLET PO SCH (08:42)
[2019-07-13] MEDS: NIFEDIPINE ER 30 MG TAB PO SCH (08:42)
[2019-07-13] MEDS: THIAMINE HCL 100 MG/ML 2ML VIAL IVP SCH (08:42)
[2019-07-13 11:26] VITALS: BP 110/71
[2019-07-13] MEDS ORDERED: POTASSIUM CHLORIDE 10MEQ/100ML 100 ML IV PRN (13:15)
[2019-07-13] MEDS ORDERED: LIDOCAINE HCL-MPF 1% 2ML VIAL IV PRN (13:15)
[2019-07-13 16:00] VITALS: BP 127/68
[2019-07-13] MEDS: POTASSIUM CHLORIDE 20 MEQ ERTAB PO PRN (17:24)
[2019-07-13 19:00] VITALS: BP 114/66
[2019-07-13] MEDS: CLONAZEPAM 0.5 MG TABLET PO PRN (22:32)
[2019-07-13 23:00] VITALS: BP 127/72
[2019-07-14 03:00] VITALS: BP 120/65
[2019-07-14] MEDS: CEFTAZIDIME PENTAHYDRATE 2 GM/VIAL IVP SCH ×3 (03:44→20:00)
[2019-07-14] MEDS ORDERED: SODIUM CHLORIDE 0.9% 250 ML IV ONE (04:26)
[2019-07-14 04:54] LABS: BASOPHILS % (AUTO) 0.9 % (0.0-5.0); EOSINOPHILS % (AUTO) 0.9 % (0.0-8.0); HEMATOCRIT 29.8 % (42-54); LYMPHOCYTES % (AUTO) 17.9 % (21.0-51.0); MEAN CORPUSCULAR HGB CONC 33.6 g/dL (32.0-36.0); MEAN CORPUSCULAR VOLUME 92.3 fL (79-99); MONOCYTES % (AUTO) 9.5 % (3.0-13.0); NEUTROPHILS % (AUTO) 58.2 % (40.0-77.0); PLATELET COUNT (AUTO) 437 K/uL (130-400); RED BLOOD CELL COUNT(AUTO) 3.23 MIL/uL (4.50-6.20); RED CELL DISTRIBUTION WIDTH 13.6 % (11.0-15.5)
[2019-07-14 05:14] LABS: CREATININE 1.6 mg/dL (0.5-1.5); MAGNESIUM 1.9 mg/dL (1.80-2.40); POTASSIUM 3.4 mmol/L (3.5-5.1)
[2019-07-14] MEDS: INSULIN HUMULIN R 100 UNIT/ML 3ML SQ SCH ×4 (06:07→20:18)
[2019-07-14] MEDS: POTASSIUM CHLORIDE 20 MEQ ERTAB PO PRN ×2 (06:49→10:44)
--- NOTE | 2019-07-14 07:50 | NUR ---
NOTE ASLEEP. AWAKENS EASILY. NO DISTRESS OR SOB. NO N/V REPORTS NOT HAVING BM FOR DAYS NOW. EATING OKAY. P.T. WORKING WITH HIM. HE WANTS TO BE MORE AGGRESSIVE WITH P.T. HE WISHES TO GO HOME INSTEAD OF SNF.REFER TO P.T. NOTES. HE HAS BEEN GETTING TO CHAIR AND ALSO WALKED WITH P.T. AND WALKER.
[2019-07-14 08:00] VITALS: BP 134/74
[2019-07-14] MEDS: METOPROLOL TARTRATE 25 MG TAB PO SCH ×2 (10:43→20:00)
[2019-07-14] MEDS: FAMOTIDINE 20MG TAB 20 MG TAB PO SCH (10:43)
[2019-07-14] MEDS: DOCUSATE SODIUM 100 MG CAP PO SCH ×2 (10:43→20:00)
[2019-07-14] MEDS: HYDROCHLOROTHIAZIDE 25 MG TABLET PO SCH (10:44)
[2019-07-14] MEDS: LINAGLIPTIN 5 MG TABLET PO SCH (10:44)
[2019-07-14] MEDS: LEVOFLOXACIN 750 MG TABLET PO SCH (10:44)
[2019-07-14] MEDS: NIFEDIPINE ER 30 MG TAB PO SCH (10:44)
[2019-07-14] MEDS: LOSARTAN 50 MG TABLET PO SCH (10:44)
[2019-07-14] MEDS: THIAMINE HCL 100 MG/ML 2ML VIAL IVP SCH (10:45)
[2019-07-14] MEDS: RIVAROXABAN 20 MG TABLET PO SCH (10:45)
[2019-07-14] MEDS: LACTULOSE 20 GM/30 ML UDCUP PO PRN (10:46)
[2019-07-14 11:00] VITALS: BP 114/63
--- NOTE | 2019-07-14 12:13 | NUR ---
CM NOTE CM spoke to Joann WOLFF regarding d/c planning. Pt prefers to return home. States all preparations will be made to d/c home when medically stable. CM also spoke to household appliances service technician regarding pt request to have visit. CM to f/u.
[2019-07-14 16:00] VITALS: BP 106/60
[2019-07-14 19:53] VITALS: BP 119/71
[2019-07-14] MEDS: CLONAZEPAM 0.5 MG TABLET PO PRN (23:08)
[2019-07-14 23:28] VITALS: BP 140/63
[2019-07-15] VITALS (7 sets, daily range): BP systolic 105–134; BP diastolic 56–75
[2019-07-15] MEDS: CEFTAZIDIME PENTAHYDRATE 2 GM/VIAL IVP SCH ×2 (03:10→13:08)
[2019-07-15 05:04] LABS: HEMATOCRIT 30.3 % (42-54); MEAN CORPUSCULAR HEMOGLOBIN 30.7 pg (27.0-33.0); MEAN CORPUSCULAR HGB CONC 32.7 g/dL (32.0-36.0); MEAN CORPUSCULAR VOLUME 93.8 fL (79-99); PLATELET COUNT (AUTO) 442 K/uL (130-400); RED BLOOD CELL COUNT(AUTO) 3.23 MIL/uL (4.50-6.20); RED CELL DISTRIBUTION WIDTH 13.8 % (11.0-15.5); WHITE BLOOD COUNT (AUTO) 7.4 K/uL (4.8-10.8)
[2019-07-15 05:12] LABS: CREATININE 1.5 mg/dL (0.5-1.5); POTASSIUM 3.4 mmol/L (3.5-5.1)
[2019-07-15] MEDS: INSULIN HUMULIN R 100 UNIT/ML 3ML SQ SCH ×4 (05:44→21:00)
[2019-07-15] MEDS: LEVOFLOXACIN 750 MG TABLET PO SCH (10:33)
[2019-07-15] MEDS: METOPROLOL TARTRATE 25 MG TAB PO SCH ×2 (10:33→20:32)
[2019-07-15] MEDS: FAMOTIDINE 20MG TAB 20 MG TAB PO SCH (10:33)
[2019-07-15] MEDS: LINAGLIPTIN 5 MG TABLET PO SCH (10:33)
[2019-07-15] MEDS: HYDROCHLOROTHIAZIDE 25 MG TABLET PO SCH (10:33)
[2019-07-15] MEDS: RIVAROXABAN 20 MG TABLET PO SCH (10:33)
[2019-07-15] MEDS: LOSARTAN 50 MG TABLET PO SCH (10:33)
[2019-07-15] MEDS: NIFEDIPINE ER 30 MG TAB PO SCH (10:34)
[2019-07-15] MEDS: DOCUSATE SODIUM 100 MG CAP PO SCH ×2 (10:34→20:32)
[2019-07-15] MEDS: THIAMINE HCL 100 MG/ML 2ML VIAL IVP SCH (10:34)
--- NOTE | 2019-07-15 13:26 | NUR ---
NEW IV START, 22G TO RT. HAND.
[2019-07-15] MEDS ORDERED: POTASSIUM CHLORIDE 10MEQ/100ML 100 ML IV PRN (15:45)
[2019-07-15] MEDS ORDERED: POTASSIUM CHLORIDE 10% ELIXIR 20 MEQ/15 ML UDCUP PO PRN (15:45)
[2019-07-15] MEDS ORDERED: POTASSIUM CHLORIDE 20 MEQ ERTAB PO PRN (15:45)
[2019-07-15] MEDS: POTASSIUM CHLORIDE 10% ELIXIR 20 MEQ/15 ML UDCUP PO PRN (18:23)
[2019-07-15] MEDS: CLONAZEPAM 0.5 MG TABLET PO PRN (23:37)
[2019-07-15] MEDS: ACETAMINOPHEN 325 MG TAB PO PRN (23:40)
--- NOTE | 2019-07-15 23:44 | NUR ---
ANXIOUS Pt states he can't go to sleep and his back is hurting.Medicated as per emar.Side rails up x 2,call light in reach,instructed to use call light.
--- NOTE | 2019-07-16 00:44 | NUR ---
MED EFFECT Pt appears calm,respirations even and unlabored.Watching tv.
[2019-07-16 04:00] VITALS: BP 122/72
[2019-07-16 05:54] LABS: BASOPHILS % (AUTO) 0.8 % (0.0-5.0); EOSINOPHILS % (AUTO) 1.6 % (0.0-8.0); HEMATOCRIT 31.1 % (42-54); LYMPHOCYTES % (AUTO) 23.1 % (21.0-51.0); MEAN CORPUSCULAR HEMOGLOBIN 30.6 pg (27.0-33.0); MEAN CORPUSCULAR HGB CONC 32.5 g/dL (32.0-36.0); MEAN CORPUSCULAR VOLUME 94.2 fL (79-99); MONOCYTES % (AUTO) 10.2 % (3.0-13.0); NEUTROPHILS % (AUTO) 55.4 % (40.0-77.0); PLATELET COUNT (AUTO) 434 K/uL (130-400); RED CELL DISTRIBUTION WIDTH 13.8 % (11.0-15.5); WHITE BLOOD COUNT (AUTO) 6.4 K/uL (4.8-10.8)
[2019-07-16] MEDS: INSULIN HUMULIN R 100 UNIT/ML 3ML SQ SCH ×4 (06:13→20:51)
[2019-07-16 06:29] LABS: CREATININE 1.5 mg/dL (0.5-1.5); POTASSIUM 3.8 mmol/L (3.5-5.1)
[2019-07-16 08:19] VITALS: BP 118/68
--- NOTE | 2019-07-16 08:30 | NUR ---
DR. SHANNAN FRIAS HERE TO EVALUATE PT. PLANS TO DISCHARGE TODAY. WANTS PT TO HAVE HOME HEALTH AND HOME HEALTH PT ARRANGED BY PRIMARY. WILL CONTACT CASE MANAGEMENT
[2019-07-16] MEDS: LEVOFLOXACIN 750 MG TABLET PO SCH (08:42)
[2019-07-16] MEDS: LINAGLIPTIN 5 MG TABLET PO SCH (08:42)
[2019-07-16] MEDS: LOSARTAN 50 MG TABLET PO SCH (08:42)
[2019-07-16] MEDS: RIVAROXABAN 20 MG TABLET PO SCH (08:43)
[2019-07-16] MEDS: DOCUSATE SODIUM 100 MG CAP PO SCH ×2 (08:44→20:47)
[2019-07-16] MEDS: FAMOTIDINE 20MG TAB 20 MG TAB PO SCH (08:44)
[2019-07-16] MEDS: NIFEDIPINE ER 30 MG TAB PO SCH (08:45)
[2019-07-16] MEDS: HYDROCHLOROTHIAZIDE 25 MG TABLET PO SCH (08:45)
[2019-07-16] MEDS: METOPROLOL TARTRATE 25 MG TAB PO SCH ×2 (08:46→20:47)
[2019-07-16] MEDS: THIAMINE HCL 100 MG/ML 2ML VIAL IVP SCH (08:48)
--- NOTE | 2019-07-16 09:15 | NUR ---
ALISSA MCKEON RN HERE. [facility] PT CAN HAVE BOTH HOME HEALTH AND PT ARRANGED THROUGH PTS PRIMARY Lamar KENNEDY, PACKING LINE OPERATOR [phone]
--- NOTE | 2019-07-16 10:15 | NUR ---
PT PT HERE TO AMBULATE PT. PT STATES PT GOT DIZZY AFTER WALKING. BP CHECKED 135/69 P 76. PT SITTING ON EDGE OF BED. WILL CONTINUE TO MONITOR.
--- NOTE | 2019-07-16 11:00 | NUR ---
DIZZINESS PT STATES HE FEELS REALLY DIZZY AND DOESNT KNOW WHY. HELPED PT BACK IN BED IN SUPINE POSITION. GLUCOSE OF 122. BP 106/53. DENIES SOB, PAIN. TEMP OF 97.8
--- NOTE | 2019-07-16 11:10 | NUR ---
DR. RODRIGUEZ FRIAS INFORMED OF PTS DIZZINESS AND BP. ORDERS RECEIVED TO DO ORTHOSTATIC VITALS AND INFORM HIM.
[2019-07-16 11:13] VITALS: BP 104/71
--- NOTE | 2019-07-16 11:20 | NUR ---
VITALS DR. FRIAS INFORMED OF HIS ORTHOSTATIC VITALS. LYING 123/68 P 91. SITTING 130/58 P 59. STANDING 106/49 P 70. WAS SWAYING WHILE STANDING AND NEEDING TWO PEOPLE TO HOLD HIM. ORDERS RECEIVED TO START NS AT 65ML/HR AND HOLD DISCHARGE HOME UNTIL EVALUATED THIS AFTERNOON TO SEE HOW HE PROGRESSES. INFORMED PT OF DR. FRIAS'S ORDER. VERBALIZED UNDERSTANDING.
--- NOTE | 2019-07-16 11:30 | NUR ---
DR. TRINA MENA HERE TO EVALUATE PT. INFORMED DR. MENA OF PTS DIZZINESS AND NS STARTED PER DR. CAMPBELL. PER DR. MENA, ADALAT DISCONTINUED AND WILL MONITOR ALL OTHER BLOOD PRESSURE MEDS DAY PROGRESS. INFORMED PT. VERBALIZED UNDERSTANDING.
[2019-07-16] MEDS: SODIUM CHLORIDE 0.9% 1000ML 1,000 ML IV SCH ×2 (12:03→20:47)
--- NOTE | 2019-07-16 15:12 | NUR ---
RESTING PT RESTING. DENIES ANY FEELING OF DIZZINESS. HAD SOUP AND COOKIES FOR LUNCH. FEELS " LIKE I PERKED UP". STILL DESIRES TO BE DISCHARGED TOMORROW.
[2019-07-16 16:29] VITALS: BP 120/71
--- NOTE | 2019-07-16 16:45 | NUR ---
REPORT REPORT GIVEN TO TINY GREGORY. PT ASLEEP.
[2019-07-16 19:52] VITALS: BP 110/60
[2019-07-16] MEDS: ACETAMINOPHEN 325 MG TAB PO PRN (23:05)
[2019-07-16 23:43] VITALS: BP 143/73
[2019-07-17] VITALS (9 sets, daily range): BP systolic 102–162; BP diastolic 47–79
--- NOTE | 2019-07-17 05:58 | NUR ---
STATUS Pt slept fairly well.Orthostatic vitals taken and recorded.No distress noted.
[2019-07-17] MEDS: INSULIN HUMULIN R 100 UNIT/ML 3ML SQ SCH ×3 (06:06→16:30)
[2019-07-17 06:24] LABS: CREATININE 1.4 mg/dL (0.5-1.5); POTASSIUM 3.3 mmol/L (3.5-5.1)
[2019-07-17] MEDS: POTASSIUM CHLORIDE 10% ELIXIR 20 MEQ/15 ML UDCUP PO PRN (06:37)
[2019-07-17] MEDS: FAMOTIDINE 20MG TAB 20 MG TAB PO SCH (09:47)
[2019-07-17] MEDS: METOPROLOL TARTRATE 25 MG TAB PO SCH (09:47)
[2019-07-17] MEDS: RIVAROXABAN 20 MG TABLET PO SCH (09:48)
[2019-07-17] MEDS: DOCUSATE SODIUM 100 MG CAP PO SCH (09:48)
[2019-07-17] MEDS: THIAMINE HCL 100 MG/ML 2ML VIAL IVP SCH (09:48)
[2019-07-17] MEDS: LINAGLIPTIN 5 MG TABLET PO SCH (09:51)
[2019-07-17] MEDS: LEVOFLOXACIN 750 MG TABLET PO SCH (09:51)
--- NOTE | 2019-07-17 15:13 | NUR ---
JACK FOLLOW UP Pt with 75gm CCD in place. No report of GI distress. Fair PO intake at 75%. Recommend Glucerna BID. RD to continue to monitor. Please notify as additional nutrition concerns arise. Addendum: 07/17/19 at [address] Amended: Links added.
--- NOTE | 2019-07-17 16:30 | NUR ---
D/C PT LEFT VIA WHEELCHAIR IN PVT CAR WITH , AND DAUGHTER. D/C INSTRUCTIONS GIVEN TO PT WITH RX SCRIPT. F/U APPT MADE FOR DR. MENA, DR. BANUELOS, AND CANDIDA WOLFF. PT LEFT A/A X 3, VITALS STABLE. NO COMPLICATIONS UPON D/C
== END 2019-07-17 16:30 | disposition home or self-care (01) | DRG 871 ==
LOC: EDH 20:05 → EDHIP 07-06 00:46 → 2AH 07-06 02:30 → 2BH 07-06 09:11 → 2DH 07-10 18:59 → 3AH 07-12 12:38
PROVIDERS: ADMIT Hospitalist; ATTEND Hospitalist
DX: A41.52 Sepsis due to Pseudomonas (principal); G93.41 Metabolic encephalopathy; J18.9 Pneumonia, unspecified organism; N39.0 Urinary tract infection, site not specified; N17.9 Acute kidney failure, unspecified; I42.9 Cardiomyopathy, unspecified; J44.0 Chronic obstructive pulmonary disease with (acute) lower respiratory infection; G93.49 Other encephalopathy; E87.1 Hypo-osmolality and hyponatremia; Z16.24 Resistance to multiple antibiotics; E87.6 Hypokalemia; N18.9 Chronic kidney disease, unspecified; E11.22 Type 2 diabetes mellitus with diabetic chronic kidney disease; I12.9 Hypertensive chronic kidney disease with stage 1 through stage 4 chronic kidney disease, or unspecified chronic kidney disease; F79 Unspecified intellectual disabilities; D64.9 Anemia, unspecified; E11.51 Type 2 diabetes mellitus with diabetic peripheral angiopathy without gangrene; E11.65 Type 2 diabetes mellitus with hyperglycemia; G80.9 Cerebral palsy, unspecified; R79.1 Abnormal coagulation profile; K21.9 Gastro-esophageal reflux disease without esophagitis; I25.10 Atherosclerotic heart disease of native coronary artery without angina pectoris; I48.91 Unspecified atrial fibrillation; H91.90 Unspecified hearing loss, unspecified ear; M25.559 Pain in unspecified hip; R26.9 Unspecified abnormalities of gait and mobility; E66.9 Obesity, unspecified; R07.81 Pleurodynia; E78.5 Hyperlipidemia, unspecified; Z68.25 Body mass index [BMI] 25.0-25.9, adult; Z95.810 Presence of automatic (implantable) cardiac defibrillator; Z95.5 Presence of coronary angioplasty implant and graft; Z87.891 Personal history of nicotine dependence; Z87.440 Personal history of urinary (tract) infections; Z74.01 Bed confinement status; Z83.3 Family history of diabetes mellitus; Z82.49 Family history of ischemic heart disease and other diseases of the circulatory system; Z82.3 Family history of stroke; Z90.49 Acquired absence of other specified parts of digestive tract; Z03.818 Encounter for observation for suspected exposure to other biological agents ruled out
CPT/HCPCS: 36415; 71045; 71250; 74176; 80048; 80053; 81001; 82140; 82550; 82948; 83605; 83735; 83874; 83880; 84100; 84145; 84484; 84550; 85025; 85027; 85610; 85651; 85730; 86140; 87040; 87077; 87088; 87186; 87633; 87635; 87804; 87880; 93005; 94640; 94664; 97039; 99291; G0378; J0360; J0713; J1650; J1956; J2060; J2185; J3411; J3475; J7030

== ENCOUNTER 2023-04-28 10:15 | Emergency (ER) | payer MEDICARE ==
[~2023-04-28] VITALS: Ht 177.8 cm; Wt 80.7 kg
[~2023-04-28 10:15] MED LIST changes: -ACET-3194 PO; +ACET325T51 PO; +ALBU2.5V2 IH; +ASCO250T70 PO; +ASPI-1005 PO; -ASPI-1012 PO; +ASPI-556 PO; +BENZ-226 PO; +BUDE10.26 IH; +CLOP-31 PO; +CYAN1TAB44 PO; +DIGO125T71 PO; +FERR324T4 PO; +FERR325T22 PO; +GLIP5TAB15 PO; -GLUC1TAB21 PO; +GLUC1TAB22 PO; -HYDR25TA PO; +LEVO-70 PO; +LOSA25TA41 PO; -LOSA50TA64 PO; -NIFE-40 PO; +PANT40TA54 PO; +PANT40TA55 PO; +PRED20TA3 PO; +RANO500T6 PO; +RIVA15TA PO; +RIVA20TA PO; +SIMV-342 PO; -SIMV10TA2 PO; +UMEC62.5 IH; -[UNRECOGNIZED DRUG - CODE] PO
[2023-04-28 10:21] VITALS: BP 169/82; PULSE 71; RESP 18
[2023-04-28] MEDS ORDERED: CEPHALEXIN 500 MG CAPSULE PO STA (10:33)
[2023-04-28] MEDS ORDERED: ACETAMINOPHEN 500 MG TABLET PO ONE (11:00)
[2023-04-28] MEDS ORDERED: TETANUS/DIPHTHERIA TOXOID [ADULT] 0.5 ML VIAL IM ONE (11:00)
[2023-04-28] MEDS ORDERED: OCTYL 2-CYANOACRYLATE 1 EACH TP ONE (11:27)
[2023-04-28] MEDS ORDERED: CEPH500B PO (12:21)
== END 2023-04-28 13:30 | disposition home or self-care (01) ==
LOC: EDH 10:15
DX: S01.81XA Laceration without foreign body of other part of head, initial encounter (principal); S16.1XXA Strain of muscle, fascia and tendon at neck level, initial encounter; S80.01XA Contusion of right knee, initial encounter; E11.9 Type 2 diabetes mellitus without complications; E78.00 Pure hypercholesterolemia, unspecified; I10 Essential (primary) hypertension; K21.9 Gastro-esophageal reflux disease without esophagitis; Z79.01 Long term (current) use of anticoagulants; Z79.02 Long term (current) use of antithrombotics/antiplatelets; Z79.51 Long term (current) use of inhaled steroids; Z79.52 Long term (current) use of systemic steroids; Z79.82 Long term (current) use of aspirin; Z79.84 Long term (current) use of oral hypoglycemic drugs; Z79.899 Other long term (current) drug therapy; Z90.49 Acquired absence of other specified parts of digestive tract; Z95.810 Presence of automatic (implantable) cardiac defibrillator; W01.0XXA Fall on same level from slipping, tripping and stumbling without subsequent striking against object, initial encounter; Y93.89 Activity, other specified; Y92.89 Other specified places as the place of occurrence of the external cause; Y99.8 Other external cause status
CPT/HCPCS: 12013; 70450; 72125; 73562; 90471; 90714; 93005